=== PATIENT | female | born 1950 | race African-American/Black ===

== ENCOUNTER 2022-06-10 18:30 | Inpatient (IN) | payer MEDICARE, MEDICAID ==
[~2022-06-10] VITALS: Ht 152.4 cm; Wt 45.8 kg
[2022-06-10] MEDS ORDERED: ONDANSETRON HCL 4MG/2ML INJ IV ONE (19:15)
[2022-06-10] MEDS ORDERED: SODIUM CHLORIDE 0.9% 500 ML IV ONE ×2 (19:15→22:00)
[2022-06-10] MEDS ORDERED: MORPHINE SULFATE 4 MG/ML CPJ (NOT FOR IM USE) IV ONE (19:15)
[2022-06-10 20:27] LABS: BASOPHILS % 0.4 % (0.0-2.0); EOSINOPHILS % 0.1 % (0.0-5.0); HEMATOCRIT. 36.6 % (36.0-48.0); HEMOGLOBIN. 12.2 g/dL (12.0-16.0); LYMPHOCYTES % 10.6 % (20.0-50.0); MEAN CORPUSCULAR HEMOGLOBIN 29.3 pg (28.0-32.0); MEAN CORPUSCULAR VOLUME 87.8 fL (81.0-99.0); MEAN PLATELET VOLUME 9.1 fl (7.4-10.4); MONOCYTES % 8.3 % (2.0-8.0); NEUTROPHILS % 80.6 % (40.0-76.0); PLATELET 290 x1000/uL (130-400); RED BLOOD CELL COUNT 4.17 mill/uL (4.2-5.4); RED CELL DISTRIBUTION WIDTH 20.3 % (11.6-14.6)
[2022-06-10] MEDS ORDERED: CEFEPIME HCL 1000MG/VIAL INJ IM NR (20:30)
[2022-06-10] MEDS ORDERED: VANCOMYCIN 1G PREMIX 200 ML IV SCH (20:30)
[2022-06-10] MEDS ORDERED: ONDANSETRON HCL 4MG/2ML INJ IV NR (20:30)
[2022-06-10] MEDS ORDERED: MORPHINE SULFATE 4 MG/ML CPJ (NOT FOR IM USE) IV NR (20:30)
[2022-06-11 11:00] VITALS: BP 142/84
[2022-06-11] MEDS ORDERED: CLONIDINE 0.1MG TABLET PO PRN (11:30)
[2022-06-11] MEDS ORDERED: IPRATROPIUM/ALBUTEROL 0.5-3(2.5)MG/3ML NEB HHN PRN (11:30)
[2022-06-11] MEDS ORDERED: ACETAMINOPHEN 325MG TABLET PO PRN ×4 (11:30→14:45)
[2022-06-11] MEDS ORDERED: HYDROCODONE/ACETAMINOPHEN 5/325MG TABLET PO PRN ×2 (11:30→14:45)
[2022-06-11] MEDS ORDERED: DOCUSATE SODIUM 100MG CAPSULE PO PRN (11:30)
[2022-06-11] MEDS ORDERED: ONDANSETRON HCL 4MG/2ML INJ IV PRN (11:30)
[2022-06-11] MEDS ORDERED: CEFTRIAXONE 1 G PREMIX 50 ML IV SCH (11:45)
[2022-06-11 12:00] VITALS: BP 132/88
[2022-06-11] MEDS ORDERED: NALOXONE HCL 0.4MG/ML VIAL IV PRN (12:15)
[2022-06-11] MEDS ORDERED: ONDA4TAB11 PO (12:57)
[2022-06-11] MEDS ORDERED: DOCU-150 MT (12:57)
[2022-06-11] MEDS ORDERED: MIRT-89 PO (12:57)
[2022-06-11] MEDS ORDERED: OMEP40CA20 MT (12:57)
[2022-06-11] MEDS: AZITHROMYCIN 500 MG in DEXT 5% WATER 250 ML IV SCH (14:39)
[2022-06-11] MEDS: CEFTRIAXONE 1,000 MG in DEXTROSE 5% WATER 50 ML IV SCH (14:40)
[2022-06-11 16:00] VITALS: BP 131/80
[2022-06-11 18:40] VITALS: BP 131/80
[2022-06-11 20:00] VITALS: BP 136/78
[2022-06-11] MEDS ORDERED: DEXTROSE 50% WATER 50ML SYRINGE IV PRN (20:30)
[2022-06-11] MEDS: BLOOD SUGAR DIAGNOSTIC STRIP TEST SCH (21:00)
[2022-06-11] MEDS: INSULIN LISPRO 100 UNITS/ML SUBCUT SCH (21:00)
[2022-06-11] MEDS: PREGABALIN 75MG CAPSULE PO SCH (22:40)
[2022-06-11] MEDS: HYDROMORPHONE HCL/PF 2MG/ML CPJ IV PRN (22:42)
[2022-06-12] VITALS: BP 148/86
[2022-06-12 00:25] LABS: CHLORIDE 100 mEq/L (98-107)
[2022-06-12 00:55] LABS: ETHANOL BLOOD < 10 mg/dL
[2022-06-12 04:00] VITALS: BP 149/80
[2022-06-12] MEDS: INSULIN LISPRO 100 UNITS/ML SUBCUT SCH ×4 (06:12→21:00)
[2022-06-12] MEDS: BLOOD SUGAR DIAGNOSTIC STRIP TEST SCH ×4 (06:12→21:00)
[2022-06-12 07:55] LABS: BASOPHILS % 0.1 % (0.0-2.0); EOSINOPHILS % 0.1 % (0.0-5.0); HEMATOCRIT. 33.2 % (36.0-48.0); HEMOGLOBIN. 11.3 g/dL (12.0-16.0); MEAN CORPUSCULAR HEMOGLOBIN 29.3 pg (28.0-32.0); MEAN CORPUSCULAR VOLUME 86.4 fL (81.0-99.0); MEAN PLATELET VOLUME 9.3 fl (7.4-10.4); MONOCYTES % 9.4 % (2.0-8.0); NEUTROPHILS % 80.4 % (40.0-76.0); PLATELET 268 x1000/uL (130-400); RED BLOOD CELL COUNT 3.84 mill/uL (4.2-5.4); RED CELL DISTRIBUTION WIDTH 20.2 % (11.6-14.6)
[2022-06-12 08:00] VITALS: BP 158/81
[2022-06-12 12:00] VITALS: BP 138/78
[2022-06-12] MEDS ORDERED: LIDOCAINE HCL 1% 10 MG/ML 10ML VIAL ONE (12:44)
[2022-06-12] MEDS: AZITHROMYCIN 500 MG in DEXT 5% WATER 250 ML IV SCH (14:16)
[2022-06-12] MEDS: CEFTRIAXONE 1,000 MG in DEXTROSE 5% WATER 50 ML IV SCH (14:16)
[2022-06-12] MEDS: HYDROMORPHONE HCL/PF 2MG/ML CPJ IV PRN ×2 (14:28→21:38)
[2022-06-12 16:00] VITALS: BP 128/86
[2022-06-12 16:18] LABS: CHLORIDE 104 mEq/L (98-107)
[2022-06-12 20:00] VITALS: BP 131/82
[2022-06-12] MEDS: LORAZEPAM 0.5MG TABLET PO PRN (20:21)
[2022-06-12] MEDS: PREGABALIN 75MG CAPSULE PO SCH (20:24)
[2022-06-12] MEDS ORDERED: IOHEXOL-350 100 ML BOTTLE ONE (23:27)
[2022-06-13] VITALS: BP 133/60
[2022-06-13] MEDS: LORAZEPAM 0.5MG TABLET PO PRN (00:35)
[2022-06-13 04:00] VITALS: BP 138/64
[2022-06-13] MEDS: INSULIN LISPRO 100 UNITS/ML SUBCUT SCH ×4 (06:24→17:10)
[2022-06-13] MEDS: BLOOD SUGAR DIAGNOSTIC STRIP TEST SCH ×4 (06:24→21:00)
[2022-06-13 08:00] VITALS: BP 114/75
[2022-06-13] MEDS: HYDROMORPHONE HCL/PF 2MG/ML CPJ IV PRN ×2 (08:55→17:17)
[2022-06-13 12:00] VITALS: BP 110/70
[2022-06-13] MEDS: CEFTRIAXONE 1,000 MG in DEXTROSE 5% WATER 50 ML IV SCH (14:28)
[2022-06-13] MEDS: AZITHROMYCIN 500 MG in DEXT 5% WATER 250 ML IV SCH (14:28)
[2022-06-13 16:00] VITALS: BP 114/75
[2022-06-13 20:00] VITALS: BP 109/77
[2022-06-13] MEDS: METOPROLOL TARTRATE 25MG TABLET PO SCH (21:00)
[2022-06-13] MEDS: PREGABALIN 75MG CAPSULE PO SCH (21:00)
[2022-06-14] VITALS: BP 105/63
[2022-06-14 04:00] VITALS: BP 109/73
[2022-06-14] MEDS: BLOOD SUGAR DIAGNOSTIC STRIP TEST SCH ×4 (06:40→20:59)
[2022-06-14] MEDS: INSULIN LISPRO 100 UNITS/ML SUBCUT SCH ×4 (07:10→20:59)
[2022-06-14 08:00] VITALS: BP 126/75
[2022-06-14] MEDS: METOPROLOL TARTRATE 25MG TABLET PO SCH ×2 (08:59→20:59)
[2022-06-14 12:00] VITALS: BP 128/76
[2022-06-14] MEDS: AZITHROMYCIN 500 MG in DEXT 5% WATER 250 ML IV SCH (13:13)
[2022-06-14] MEDS: CEFTRIAXONE 1,000 MG in DEXTROSE 5% WATER 50 ML IV SCH (14:51)
[2022-06-14 16:00] VITALS: BP 112/68
[2022-06-14 20:00] VITALS: BP 107/69
[2022-06-14] MEDS: PREGABALIN 75MG CAPSULE PO SCH (20:58)
[2022-06-15] VITALS: BP 112/73
[2022-06-15 04:00] VITALS: BP 138/67
[2022-06-15] MEDS: BLOOD SUGAR DIAGNOSTIC STRIP TEST SCH ×4 (06:02→21:00)
[2022-06-15] MEDS: INSULIN LISPRO 100 UNITS/ML SUBCUT SCH ×4 (06:02→21:00)
[2022-06-15 08:00] VITALS: BP 128/88
[2022-06-15] MEDS: METOPROLOL TARTRATE 25MG TABLET PO SCH ×2 (08:57→21:09)
[2022-06-15 12:00] VITALS: BP 129/74
[2022-06-15] MEDS: AZITHROMYCIN 500 MG in DEXT 5% WATER 250 ML IV SCH (12:32)
[2022-06-15] MEDS: CEFTRIAXONE 1,000 MG in DEXTROSE 5% WATER 50 ML IV SCH (14:56)
[2022-06-15 16:00] VITALS: BP 111/76
[2022-06-15 20:00] VITALS: BP 133/82
[2022-06-15] MEDS: PREGABALIN 75MG CAPSULE PO SCH (21:10)
[2022-06-16] VITALS: BP 149/84
[2022-06-16 04:00] VITALS: BP 146/67
[2022-06-16] MEDS: BLOOD SUGAR DIAGNOSTIC STRIP TEST SCH ×4 (06:40→20:22)
[2022-06-16] MEDS: INSULIN LISPRO 100 UNITS/ML SUBCUT SCH ×4 (07:05→20:22)
[2022-06-16 08:00] VITALS: BP 140/84
[2022-06-16] MEDS: METOPROLOL TARTRATE 25MG TABLET PO SCH ×3 (09:02→21:00)
[2022-06-16] MEDS: HYDROMORPHONE HCL/PF 2MG/ML CPJ IV PRN (09:03)
[2022-06-16 12:00] VITALS: BP 143/84
[2022-06-16 16:00] VITALS: BP 140/75
[2022-06-16] MEDS ORDERED: HYDROMORPHONE HCL/PF 2MG/ML CPJ IV PRN (16:00)
[2022-06-16] MEDS ORDERED: NALOXONE HCL 0.4MG/ML VIAL IV PRN (16:15)
[2022-06-16 20:00] VITALS: BP 134/69
[2022-06-16] MEDS: PREGABALIN 75MG CAPSULE PO SCH ×2 (20:51→21:00)
[2022-06-17] VITALS (7 sets, daily range): BP systolic 97–146; BP diastolic 71–90
[2022-06-17] MEDS: BLOOD SUGAR DIAGNOSTIC STRIP TEST SCH ×4 (05:45→21:00)
[2022-06-17] MEDS: INSULIN LISPRO 100 UNITS/ML SUBCUT SCH ×4 (06:17→22:19)
[2022-06-17] MEDS: METOPROLOL TARTRATE 25MG TABLET PO SCH ×2 (09:41→22:12)
[2022-06-17] MEDS: PREGABALIN 75MG CAPSULE PO SCH (22:12)
[2022-06-18] VITALS: BP 121/77
== END 2022-06-18 00:36 | DRG 871 ==
LOC: ER 18:30 → MICUSO 21:54 → EDBEDREQ 22:16 → 7EST 06-11 13:47
PROVIDERS: ADMIT Family Medicine Adult Medicine; ATTEND Internal Medicine
PROC: 02HV33Z Insertion of Infusion Device into Superior Vena Cava, Percutaneous Approach (ICD-10-PCS; principal; 2022-06-12)
PROC: B548ZZA Ultrasonography of Superior Vena Cava, Guidance (ICD-10-PCS; 2022-06-12)
DX: A41.9 Sepsis, unspecified organism (principal); G93.41 Metabolic encephalopathy; J18.9 Pneumonia, unspecified organism; D68.59 Other primary thrombophilia; C16.9 Malignant neoplasm of stomach, unspecified; Z68.1 Body mass index [BMI] 19.9 or less, adult; C78.00 Secondary malignant neoplasm of unspecified lung; C78.7 Secondary malignant neoplasm of liver and intrahepatic bile duct; C78.6 Secondary malignant neoplasm of retroperitoneum and peritoneum; I31.39 Other pericardial effusion (noninflammatory); R00.0 Tachycardia, unspecified; I10 Essential (primary) hypertension; J43.9 Emphysema, unspecified; R62.7 Adult failure to thrive; E11.42 Type 2 diabetes mellitus with diabetic polyneuropathy; E78.5 Hyperlipidemia, unspecified; R91.8 Other nonspecific abnormal finding of lung field; G89.3 Neoplasm related pain (acute) (chronic); Z85.05 Personal history of malignant neoplasm of liver; Z88.6 Allergy status to analgesic agent
CPT/HCPCS: 36415; 36573; 71045; 71275; 80048; 80053; 80061; 80320; 82378; 82962; 83036; 83880; 84145; 84443; 84484; 85025; 85379; 87426; 93005; 93306; 93970; 97162; 97166; 97530; 97535; 99285; C1725; J0456; J0692; J0696; J1170; J1815; J2270; J2405; J3370; J3490; J7040; J7060; Q9967; G0480

== ENCOUNTER 2022-06-26 11:44 | Emergency (ER) | payer MEDICARE, MEDICAID ==
[~2022-06-26] VITALS: Ht 167.6 cm; Wt 45.0 kg
[~2022-06-26 11:44] MED LIST: DOCU-150 MT; MIRT-89 PO; OMEP40CA20 MT; ONDA4TAB11 PO
[2022-06-26 17:03] LABS: *AMPHETAMINES SCREEN URINE NEGATIVE (NEGATIVE); *BARBITURATES SCREEN URINE NEGATIVE (NEGATIVE); *BENZODIAZEPINES SCREEN URINE NEGATIVE (NEGATIVE); *COCAINE SCREEN URINE NEGATIVE (NEGATIVE); CANNABINOID URINE SCREEN NEGATIVE (NEGATIVE); METHADONE URINE SCREEN NEGATIVE (NEGATIVE); OPIATES URINE SCREEN NEGATIVE (NEGATIVE); PHENCYCLIDINE URINE SCREEN NEGATIVE (NEGATIVE)
[2022-06-26 18:06] LABS: BASOPHILS % 0.2 % (0.0-2.0); EOSINOPHILS % 0.1 % (0.0-5.0); HEMATOCRIT. 38.9 % (36.0-48.0); HEMOGLOBIN. 12.7 g/dL (12.0-16.0); LYMPHOCYTES % 19.7 % (20.0-50.0); MEAN CORPUSCULAR HEMOGLOBIN 30.4 pg (28.0-32.0); MEAN CORPUSCULAR VOLUME 93.5 fL (81.0-99.0); MONOCYTES % 3.7 % (2.0-8.0); NEUTROPHILS % 76.3 % (40.0-76.0); RED BLOOD CELL COUNT 4.16 mill/uL (4.2-5.4); RED CELL DISTRIBUTION WIDTH 23.7 % (11.6-14.6)
[2022-06-26 18:21] LABS: CHLORIDE 105 mEq/L (98-107)
[2022-06-26 18:36] LABS: ETHANOL BLOOD < 10 mg/dL
[2022-06-26 18:38] LABS: MEAN PLATELET VOLUME 10.1 fl (7.4-10.4); PLATELET 322 x1000/uL (130-400)
[2022-06-26 18:39] LABS: PLATELET ESTIMATE NORMAL
[2022-06-26] MEDS ORDERED: ALBU6.7H3 INH (19:33)
[2022-06-26] MEDS ORDERED: SODIUM CHLORIDE 0.9% 500 ML IV ONE (20:30)
[2022-06-27] VITALS: BP 112/65
== END 2022-06-27 00:35 ==
LOC: ER 11:44
DX: R74.8 Abnormal levels of other serum enzymes (principal); R06.02 Shortness of breath; R05.9 Cough, unspecified; Z85.05 Personal history of malignant neoplasm of liver; E11.9 Type 2 diabetes mellitus without complications; I10 Essential (primary) hypertension; Z79.899 Other long term (current) drug therapy; Z20.822 Contact with and (suspected) exposure to COVID-19
CPT/HCPCS: 36415; 71045; 74176; 80053; 80305; 80320; 83605; 83690; 83880; 84484; 85025; 87040; 87086; 87426; 87804; 93005; 96360; 99285; C9803; J7040; G0480